=== PATIENT | male | born 1980 | race Hispanic/Latino ===

== ENCOUNTER 2021-02-11 13:47 | Emergency (ER) | payer SELFPAY ==
[~2021-02-11] VITALS: Ht 177.8 cm; Wt 120.2 kg
[2021-02-11] MEDS ORDERED: KETOROLAC 30MG VIAL (30MG/ML) ONE (14:17)
[2021-02-11] MEDS ORDERED: KETOROLAC 30MG VIAL (30MG/ML) IM ONE (14:30)
[2021-02-11 15:11] VITALS: BP 112/68
[2021-02-11] MEDS ORDERED: NAPR-1196 PO (15:40)
== END 2021-02-11 15:56 | disposition home or self-care (01) ==
LOC: EDH 13:47
DX: S46.912A Strain of unspecified muscle, fascia and tendon at shoulder and upper arm level, left arm, initial encounter (principal); E11.9 Type 2 diabetes mellitus without complications; J45.909 Unspecified asthma, uncomplicated; I10 Essential (primary) hypertension; Z79.1 Long term (current) use of non-steroidal anti-inflammatories (NSAID); X58.XXXA Exposure to other specified factors, initial encounter; Y93.89 Activity, other specified; Y92.89 Other specified places as the place of occurrence of the external cause; Y99.8 Other external cause status
CPT/HCPCS: 73030; 96372; 99283; J1885